=== PATIENT | male | born 1985 | race African-American/Black ===

== ENCOUNTER 2021-11-26 16:08 | Emergency (ER) | payer BC, MEDICAID, SELFPAY ==
--- NOTE | ~2021-11-26 | XR_ITS ---
EXAMINATION: XR HAND, RIGHT CLINICAL INFORMATION: Fall COMPARISON: None TECHNIQUE: PA, lateral, and oblique views of the right hand. FINDINGS: The bones and soft tissues are normal. No fracture. Alignment is anatomic. Joint spaces are maintained. No erosions or soft tissue calcifications. XR/XR hand RT min 3V IMPRESSION: No acute bony abnormality of the right hand identified.
--- NOTE | 2021-11-26 16:38 | ED.GENADULT ---
HPI - General Adult General Chief complaint: Extremity Injury, Upper Stated complaint: fell off stairs, broken hand/ finger? Time Seen by Provider: 11/26/21 16:38 Source: patient Limitations: no limitations History of Present Illness HPI narrative: Patient injured right hand when walking up the stairs any began to fall getting his 1st 2 fingers caught on something on the stairs and bending of the back. Pain is mostly over the 2nd digit of the right hand. Pain increases with range of motion. Patient was concerned maybe he had dislocated that 2nd digit. Pain is 5/10. Patient use some KT tape to support his fingers which made him feel better. Symptoms are [id number] no other complaints onset of symptoms today no other complaints Related Data Previous Rx's Medication Instructions Recorded ibuprofen 600 mg tablet 600 mg PO TID PRN #20 tab 11/26/21 Allergies Allergy/AdvReac Type Severity Reaction Status Date / Time No Known Allergies Allergy Unverified 06/12/20 19:47 Review of Systems Constitutional: Constitutional: Denies chills and Denies fever(s) Cardiovascular: Cardiovascular: Denies chest pain and Denies dyspnea Respiratory: Respiratory: Denies dyspnea Gastrointestinal: Gastrointestinal: Denies nausea and Denies vomiting Musculoskeletal: Musculoskeletal: Reports arthralgias Comments: Right hand pain PMFSH Past Medical History Attestation statement: The following information was validated with the patient. Social History Social History Advance Directives: No Advance Directives Information Provided: No Physical Exam ED Vital Signs: Vital Signs - 24 hr 11/26/21 17:11 Temperature 98.3 F Pulse Rate 80 Respiratory Rate 17 Blood Pressure 135/93 H Pulse Oximetry 97 BMI result Body Mass Index 28.2 vital signs have been reviewed as normal and appeared to be correct. Blood pressure normal. Heart rate normal. Respiration rate normal. Temperature normal. Oxygen saturation normal. Appearance: Alert. Oriented X3. No acute distress. Head: Normal external exam. Normocephalic. Atraumatic. Eyes: PERRLA. EOMI. Conjunctiva and sclera normal. Eyelids normal. ENT: Pharynx normal. Uvula midline. Moist mucous membranes. Neck: Soft full range of motion, no JVD Back: Full range of motion noted. Skin: Skin warm and dry no ecchymosis noted Extremities: Positive tenderness no noted over the right MCP of the right hand pain increases with range of motion no obvious deformity positive sensation positive pulses Neuro: Oriented X 3. No motor deficit. No sensory deficit. Reflexes normal. Course Course Course Narrative: Right hand fracture Right 2nd digit fracture Right 2nd digit sprain Right 2nd digit dislocation Right hand x-ray pending 17:01 x-rays negative for fracture will sherif taping her right index finger splint Medical Decision Making Imaging Data hand: Radiologist's impression: [address] [address] XRay Report Signed Patient: Edvin Yee MR#: [id number] : 1985 Acct:[id number] Age/Sex: 36 / M ADM Date: 11/26/21 Loc: HO.ED Attending Dr: Ordering Physician: Abimael Akbar MD Date of Service: 11/26/21 Procedure(s): XR hand RT min 3V Accession Number(s): [id number] cc: Abimael Akbar MD~ EXAMINATION: XR HAND, RIGHT CLINICAL INFORMATION: Fall? COMPARISON: None? TECHNIQUE: PA, lateral, and oblique views of the right hand. FINDINGS: The bones and soft tissues are normal. No fracture. Alignment is anatomic. Joint spaces are maintained. No erosions or soft tissue calcifications.? XR/XR hand RT min 3V IMPRESSION: No acute bony abnormality of the right hand identified. Dictated By: Tima Dior MD Signed By: <Electronically signed by Tima Dior MD in OV> 11/26/21 1655 DD/ 1644 TD/TT:? Aerodynamics Professor: SK Discharge Plan Discharge Clinical Impression: Sprain of finger of right hand Patient Disposition: Home, Self-Care Instructions: Finger Sprain (ED) Additional Instructions: X-rays negative for fracture dislocation Rest ice elevation sherif taping splinting Prescriptions: New ibuprofen 600 mg tablet 600 mg PO TID PRN (Reason: pain) Qty: 20 0RF
[2021-11-26 17:11] VITALS: BP 135/93; PULSE 80; RESP 17; TEMP 36.8; O2SAT 97; BMI 28.2
== END 2021-11-26 17:25 | disposition home or self-care (01) ==
PROVIDERS: Emergency Provider Emergency Medicine Emergency Medical Services
DX: S63.610A Unspecified sprain of right index finger, initial encounter (principal); W17.89XA Other fall from one level to another, initial encounter; Y93.89 Activity, other specified; Y92.9 Unspecified place or not applicable; Y99.9 Unspecified external cause status
CPT/HCPCS: 73130; 99283